=== PATIENT | male | born 1995 | race Two or more races ===

== ENCOUNTER 2023-01-27 22:52 | Emergency (ER) | payer OTHER ==
[~2023-01-27] VITALS: Ht 167.6 cm; Wt 59.0 kg
== END 2023-01-28 03:32 | disposition left against medical advice (07) ==
LOC: ER 22:52
DX: R50.9 Fever, unspecified (principal); R05.9 Cough, unspecified; R05.8 Other specified cough; G44.89 Other headache syndrome; J02.9 Acute pharyngitis, unspecified